=== PATIENT | male | born 1980 | race Two or more races ===

== ENCOUNTER 2023-12-05 20:03 | Emergency (ER) | payer SELFPAY ==
[~2023-12-05] VITALS: Ht 172.7 cm; Wt 113.4 kg
[2023-12-05] MEDS ORDERED: LORAZEPAM 2 MG/1 ML VIAL ONE (20:32)
[2023-12-05] MEDS: LORAZEPAM 2 MG/1 ML VIAL IV ONE (20:32)
[2023-12-05 20:33] LABS: BASOPHILS # (AUTO) 0.1 K/UL (0.0-0.2); BASOPHILS % (AUTO) 1.2 % (0.0-2.0); EOSINOPHILS # (AUTO) 0.1 K/uL (0.0-0.7); HEMATOCRIT 42.2 % (36.7-47.1); HEMOGLOBIN 13.8 g/dL (12.5-16.3); LYMPHOCYTES # (AUTO) 4.5 K/uL (0.8-4.8); LYMPHOCYTES % (AUTO) 45.3 % (20.5-51.5); MEAN CORPUSCULAR HEMOGLOBIN 26.2 uug (23.8-33.4); MEAN CORPUSCULAR HGB CONC 33 g/dL (32.5-36.3); MEAN CORPUSCULAR VOLUME 80.6 fL (73.0-96.2); MONOCYTES # (AUTO) 0.8 K/uL (0.1-1.30); MONOCYTES % (AUTO) 7.6 % (0.0-11.0); NEUTROPHILS # (AUTO) 4.5 K/uL (1.8-8.9); NEUTROPHILS % (AUTO) 44.9 % (38.5-71.5); PLATELET COUNT (AUTO) 204 K/uL (152-348); RED BLOOD CELL COUNT(AUTO) 5.24 MIL/uL (4.06-5.63); RED CELL DISTRIBUTION WIDTH 13.1 % (12.1-16.2)
[2023-12-05 20:39] LABS: DIFFERENTIAL COMMENT 1
[2023-12-05 20:45] LABS: CREATININE 1.5 mg/dL (0.6-1.3); POTASSIUM 3.8 mmol/L (3.5-5.1)
[2023-12-05 20:50] LABS: ALBUMIN 3.7 g/dL (3.4-5.0); BILIRUBIN,TOTAL 0.3 mg/dL (0.2-1.0); MAGNESIUM 2.2 mg/dL (1.8-2.4); TOTAL PROTEIN, SERUM 6.8 g/dL (6.4-8.2)
[2023-12-05] MEDS ORDERED: ONDANSETRON 4 MG/2 ML VIAL ONE (20:52)
[2023-12-05] MEDS: ONDANSETRON 4 MG/2 ML VIAL IV ONE (20:57)
[2023-12-06] MEDS: IV NS 1000 ML 1,000 ML IV ONE (02:00)
[2023-12-06] MEDS: LORAZEPAM 2 MG/1 ML VIAL IV ONE (03:33)
[2023-12-06] MEDS: MECLIZINE HCL 25 MG TABLET PO ONE (03:33)
[2023-12-06] MEDS ORDERED: MECL-159 PO (06:00)
[2023-12-06 07:13] VITALS: BP 138/82; TEMP 97.8; O2SAT 97
== END 2023-12-06 06:55 | disposition home or self-care (01) ==
LOC: ER 20:06
DX: R07.89 Other chest pain (principal); R42 Dizziness and giddiness; T40.711A Poisoning by cannabis, accidental (unintentional), initial encounter; Z79.899 Other long term (current) drug therapy; Y92.89 Other specified places as the place of occurrence of the external cause
CPT/HCPCS: 36415; 83735; 84484; 85025; 93005; A4606; A4663; J2060; J2405; J7040; J8597